=== PATIENT | female | born 1995 | race Caucasian/White ===

== ENCOUNTER 2018-09-26 10:30 | Emergency (ER) | payer MEDICAID, OTHER ==
[~2018-09-26] VITALS: Ht 162.6 cm; Wt 61.2 kg
[2018-09-26 10:59] VITALS: BP 136/81
[2018-09-26] MEDS ORDERED: LORazepam 0.5 MG TAB PO ONE (11:00)
[2018-09-26 11:16] LABS: Hematocrit 43.2 % (36.0-46.0); Mean Corpuscular Hemoglobin 29.7 pg (28.0-32.0); Mean Corpuscular Hgb Conc. 32.4 g/dL (32.0-36.0); Mean Corpuscular Volume 91.4 fL (80.0-100.0); Platelet Count (auto) 278 10^3/uL (140-450); Red Blood Cells 4.73 10^6/uL (4.0-5.20); Red Cell Distribution Width 14.6 % (11.8-14.3); White Blood Cell 14.2 10^3/uL (4.4-10.8)
[2018-09-26 11:19] LABS: Urine Pregnacy Test Negative (Negative)
[2018-09-26 11:22] LABS: Urine Bacteria NONE SEEN /hpf (None Seen); Urine Blood Negative /uL (Negative); Urine Mucus FEW (None Seen); Urine Specific Gravity 1.007 (1.001-1.035); Urine WBC <1 /hpf (0 - 5)
[2018-09-26 11:23] LABS: Basophils % (manual) 0 (0.0-2.0); Blast Cells 0; Eosinophils % (manual) 0 (0-7); Metamyelocytes % 0; Myelocytes % 0; Promyelocytes % 0; Reactive Lymphocytes 0
[2018-09-26 11:33] LABS: Albumin 4.6 g/dL (3.4-5.0); Calcium 8.7 mg/dL (8.5-10.1); Potassium 3.2 mmol/L (3.5-5.1)
[2018-09-26 11:36] LABS: BUN/Creatinine Ratio 11.7; Bilirubin, Total 0.6 mg/dL (0.2-1.0)
[2018-09-26 11:44] LABS: Alcohol, Urine < 3.0 mg/dL (0-5); Amphetamine Screen, Urine NEGATIVE (NEGATIVE); Barbiturate Scree,Urine NEGATIVE (NEGATIVE); Benzodiazephine Screen, Urine NEGATIVE (NEGATIVE); Cannabinoid Screen, Urine NEGATIVE (NEGATIVE); Cocaine Screen, Urine POSITIVE (NEGATIVE); Opiate Scree,Urine NEGATIVE (NEGATIVE); Phencyclidine Screen, Urine NEGATIVE (NEGATIVE)
[2018-09-26 11:54] LABS: Band Neutrophils % (manual) 2; Lymphocytes % (manual) 6 (10.0-50.0); Monocytes % (manual) 5 (0-12)
[2018-09-26] MEDS ORDERED: cefTRIAXone SOD 1,000 MG VL IM ONE (12:00)
[2018-09-26] MEDS ORDERED: POTASSIUM EFFERVESENT TAB 25 MEQ PO ONE (12:00)
== END 2018-09-26 12:30 | disposition home or self-care (01) ==
LOC: ER 10:40
DX: F14.10 Cocaine abuse, uncomplicated (principal); R51 Headache; F12.10 Cannabis abuse, uncomplicated; D72.829 Elevated white blood cell count, unspecified
CPT/HCPCS: 36415; 70450; 80053; 80307; 81001; 81025; 85007; 85027; 96372; 99284; J0696